=== PATIENT | female | born 1960 | race Caucasian/White ===

== ENCOUNTER → 2023-08-02 13:43 | Outpatient (REF) | payer BC, SELFPAY | LOC: WDC 13:43 | PROVIDERS: ATTENDING PHYSICIAN Family Medicine | DX: Z12.31 Encounter for screening mammogram for malignant neoplasm of breast (principal) | CPT/HCPCS: 77063; 77067 ==

== ENCOUNTER → 2023-08-09 09:17 | Outpatient (REF) | payer BC, SELFPAY | LOC: WDC 09:17 | PROVIDERS: ATTENDING PHYSICIAN Family Medicine | DX: R92.8 Other abnormal and inconclusive findings on diagnostic imaging of breast (principal) | CPT/HCPCS: 76642 ==

== ENCOUNTER → 2023-11-07 13:48 | Outpatient (REF) | payer BC, SELFPAY | LOC: WDC 13:48 | PROVIDERS: ATTENDING PHYSICIAN Family Medicine | DX: R92.8 Other abnormal and inconclusive findings on diagnostic imaging of breast (principal) | CPT/HCPCS: 76642 ==

== ENCOUNTER → 2023-11-13 11:20 | Outpatient (REF) | payer BC, SELFPAY | LOC: RCS 11:20 | PROVIDERS: ATTENDING PHYSICIAN Pain Medicine Interventional Pain Medicine; FAMILY PHYSICIAN Family Medicine | DX: Z01.818 Encounter for other preprocedural examination (principal) | CPT/HCPCS: 93005 ==

== ENCOUNTER → 2024-01-30 11:39 | Outpatient (REF) | payer BC, SELFPAY | LOC: WDC 11:39 | PROVIDERS: ATTENDING PHYSICIAN Family Medicine | DX: N63.31 Unspecified lump in axillary tail of the right breast (principal) | CPT/HCPCS: 88305; 19083; 88341; 88342; 88365; A4648 ==

== ENCOUNTER 2024-02-26 06:47 | Day surgery (SDC) | payer OTHER, SELFPAY ==
[2024-02-20 13:33] VITALS: BMI 32.0
[2024-02-20 13:44] LABS: Hematocrit 37.8 % (37.0-47.0); Hemoglobin 12.9 g/dL (12.0-16.0); Mean Corp Hgb Conc. 34.1 g/dL (33.0-37.0); Mean Corpuscular Hgb 31.1 pg (27.0-31.0); Mean Corpuscular Volume 91.1 fL (81.0-99.0); Mean Platelet Volume 8.6 fL (7.4-10.4); Platelet Count 335 10^3/uL (130-400); Red Blood Cell Count 4.15 10^6/uL (4.20-5.40); Red Cell Dist. Width 13.1 % (11.5-14.5); White Blood Cell Count 5.9 10^3/uL (4.8-10.8)
[2024-02-26] VITALS (8 sets, daily range): BP systolic 127–174; BP diastolic 71–98; BMI 32.0
[2024-02-26] MEDS: TYLENOL 1000 MG PO (12:03)
[2024-02-26 12:10] LABS: Glucose - Point of Care 112 mg/dl (70-99)
[2024-02-26] MEDS: TRANSDERM-SCOP 1 PATCH TRANSDERM (12:45)
--- NOTE | 2024-02-26 16:50 | W.IMMPOSTOP ---
Surgical Immed Post Op Note
-
Primary Surgeon: Jamal Garcia MD
Assisting Surgeon: Caterina Godfrey PA-C
Pre-op Diagnosis: Left shoulder rotator cuff tear, biceps tendonopathy, AC joint arthritis, subacromial impingement
Post-op Diagnosis: Left shoulder rotator cuff tear, biceps tendonopathy, SLAP tear, AC joint arthritis, subacromial impingement
Procedure Performed: Left shoulder arthroscopic rotator cuff repair, biceps tenodesis, labral debridement, AC joint resection, subacromial decompression
Anesthesia Type: general
Specimen / Cultures: none
Estimated Blood Loss: 20mL
Complications: none apparent
Operative Findings: SLAP tear, high grade partial articular sided rotator cuff tear, labral degeneration
Operative dictation #: [id number]
[2024-02-26 17:09] LABS: Glucose - Point of Care 122 mg/dl (70-99)
== END 2024-02-26 18:26 | disposition home or self-care (01) ==
LOC: SDS 06:47
PROVIDERS: ATTENDING PHYSICIAN Student in an Organized Health Care Education/Training Program; FAMILY PHYSICIAN Family Medicine
DX: S46.012A Strain of muscle(s) and tendon(s) of the rotator cuff of left shoulder, initial encounter (principal); W19.XXXA Unspecified fall, initial encounter; M19.012 Primary osteoarthritis, left shoulder; M25.812 Other specified joint disorders, left shoulder; M75.92 Shoulder lesion, unspecified, left shoulder
CPT/HCPCS: 29827; 29828; 29807; 29826; 36415; 82962; 85027

== ENCOUNTER → 2024-06-30 08:30 | Outpatient (REF) | payer SELFPAY | LOC: CLAB 08:30 | PROVIDERS: ATTENDING PHYSICIAN Specialist | DX: Z41.1 Encounter for cosmetic surgery (principal) | CPT/HCPCS: 88305 ==